=== PATIENT | female | born 1960 | race Caucasian/White ===

== ENCOUNTER 2016-11-21 18:49 | Emergency (ER) | payer OTHER ==
[~2016-11-21] VITALS: Ht 180.3 cm; Wt 109.1 kg
[2016-11-21 19:08] VITALS: BP 135/73; PULSE 68; RESP 16; O2SAT 96
--- NOTE | 2016-11-21 20:34 | ED.REPORT ---
HPI-Extremity Problem Lower Date of Service Nov 21, 2016 ED Provider: Noble Kohler PA-C Stephany is a 56-year-old female with a history of diabetes, hypertension and asthma presenting with a chief complaint of unilateral leg swelling. She reports increased ankle, knee and hip pain. She has a history one and a half years ago for fall which injured her left hip. Also complains of back pain with right leg radiculopathy which is at baseline. Denies use of blood thinners , estrogen, control, recent trauma, extended travel, history of DVT/PE. 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 Nursing Notes Stated Complaint: LEFT LEG AND ANKLE SWELLING Chief Complaint: General Complaint Nursing Notes Reviewed: Yes Allergies: Coded Allergies: codeine (Verified Allergy, Intermediate, HIVES, 11/21/16) iodine (Unverified Allergy, Mild, ITCHINESS, 08/08/12) PT BECAME ITCHY AFTER DRINKING ORAL CONTRAST. moxifloxacin (Verified Allergy, Mild, HIVES WHEEZY, 11/21/16) General Time Seen by MD: 20:11 Chief Complaint Leg injury left Risk-Extremity Prob Lower Well's Criteria for DVT Entire leg swollen (1), Calf swelling >3cm (1), Collat superfic veins (1) Well's DVT Score: >2 pts (high risk 85%) Past Medical History Past Medical History Reports: Asthma, Diabetes mellitus, Hypertension Review of Systems Review of Systems Note: Negative unless stated otherwise in history of present illness Physical Exam General: Well appearing, well developed, well nourished, no acute distress. Left hip: Good range of motion Left thigh: Varicose veins and superficial phlebitis on the medial aspect which patient states is at baseline. Left knee: Nontender, good range of motion, negative redness, heat. Left calf: Notably larger than the right calf, nontender. Negative redness, heat. Left foot/ankle: Ankle notably larger than the right. 1+ pitting edema. PT pulses 2+, sensation and motion and brisk capillary refill present distal phalanges. Negative redness, heat. Head: Atraumatic, normocephalic. Eyes: No scleral icterus or injection. No discharge. Vision grossly intact. ENT: Voice clear, hearing grossly intact. Respiratory: No respiratory distress, no increased work of breathing. Speaks in complete sentences. Skin: Warm and dry. Neurological: Grossly nonfocal. Psychological: alert and oriented. Speech appropriate, linear and logical. Behavior appropriate. Initial Vital Signs Vital Signs (First) Date Time Temp Pulse Resp B/P Pulse Ox O2 Delivery O2 Flow Rate FiO2 11/21/16 19:08 36.8 68 16 135/73 96 Room Air Mild hypertension noted, otherwise normal Interpretation & Diagnostics Lab Results Interpretation Result Diagram: 11/21/16204411/21/162044 Test 11/21/16 20:45 White Blood Count 9.0th/mm3 (3.8-10.1) Red Blood Count 5.03mil/mm3 (3.90-5.20) Hemoglobin 13.4g/dL (12.0-15.6) Hematocrit 42.0% (35.0-46.0) Mean Corpuscular Volume 83.5fL (81-100) Mean Corpuscular Hemoglobin 26.6pg (27.0-35.0) Mean Corpuscular Hemoglobin Concent 31.9% (32.0-37.0) Red Cell Distribution Width 14.5% (12.3-15.4) Platelet Count 296bil/L (150-400) Neutrophils (%) (Auto) 51.9% (40-74) Lymphocytes (%) (Auto) 34.0% (14-46) Monocytes (%) (Auto) 9.9% (4-12) Eosinophils (%) (Auto) 3.8% (0-5) Basophils (%) (Auto) 0.3% (0-3) Sodium Level 138mEq/L (134-144) Potassium Level 4.0mEq/L (3.5-5.2) Chloride Level 101mEq/L (97-108) Carbon Dioxide Level 24mmol/L (18-29) Blood Urea Nitrogen 13mg/dL (6-24) Creatinine 0.52mg/dL (0.57-1.00) Estimat Glomerular Filtration Rate 175mL/min (>59) Glucose Level 105mg/dL (60-99) Calcium Level 10.0mg/dL (8.5-10.1) Total Bilirubin 0.3mg/dL (0.0-1.2) Aspartate Amino Transf (AST/SGOT) 17U/L (0-50) Alanine Aminotransferase (ALT/SGPT) 15U/L (0-32) Alkaline Phosphatase 66U/L (25-150) Total Protein 7.2g/dL (6.4-8.4) Albumin 4.1g/dL (3.4-5.0) Hold [place] Top Tube Received (Received) Re-Eval/Medical Decision Med Decision/Clinical Course 56 year old female presenting with unilateral left leg swelling, increased left hip pain. Swelling easily noted on physical examination. Negative redness, heat. Distal pulses intact. I discussed case with Dr. Sow who met with and examined the patient. Ordered ultrasound to rule out DVT as well as CBC and CMP. Considering DVT, cellulitis, lymphedema. Care transferred to Dr. Sow at shift change. Discharge & Departure Impression: Primary Impression: Swelling of left lower extremity Disposition: Home Discharge Condition All VS Reviewed: Yes Condition: Stable Patient Instructions: Leg Edema (ED) Additional Instructions: Evaluation for left leg swelling in the emergency department includes history, physical examination, blood tests and ultrasound all of which are reassuring that this is not caused by an immediately dangerous conditions such as a blood clot. Elevate the leg as much as possible to reduce the swelling. I also recommend a mid-strength compression stocking to help reduce the swelling. These are available [id number]. Follow-up with your primary care provider to further investigate the cause of your leg swelling. Return to emergency department for new or worsening symptoms including increasing redness, swelling, pain, shortness of breath chest pain or cough Referrals: OTHER,PHYSICIAN (PCP) [facility] Provider for [facility]: Bj Sow DO Attending Statement Ultrasound was negative for DVT. Laboratory work was reassuring. No signs of renal insufficiency. She has bounding pedal pulses arterial insufficiency is highly unlikely. Because of her edema is uncertain. I will have her wear stockings and elevate her feet and follow-up with primary care. Noble Kohler PA-C Nov 21, 2016 20:34 Bj Sow DO Nov 21, 2016 22:05
[2016-11-21 20:50] LABS: BASOPHILS % (AUTO) 0.3 % (0-3); EOSINOPHILS % (AUTO) 3.8 % (0-5); MONOCYTES % (AUTO) 9.9 % (4-12); Mean Corpuscular Hemoglobin 26.6 pg (27.0-35.0); Mean Corpuscular Volume 83.5 fL (81-100); NEUTROPHILS % (AUTO) 51.9 % (40-74); Platelet Count 296 bil/L (150-400)
--- NOTE | 2016-11-21 21:53 | DRSVH ---
PROCEDURE: US VEINOUS LEG DUPLEX UNILATERAL, LEFT INDICATIONS: unilateral leg swelling TECHNIQUE: Real-time imaging, as well as color and pulse Doppler interrogation, were performed of the lower extr emity deep veins from the inguinal ligament to the popliteal fossa. COMPARISON: None. FINDINGS: The deep veins are normally compressible, and free of intraluminal thrombus. Color and pu lse Doppler demonstrate normal phasic intraluminal flow. There is normal augmentation response to di stal compression maneuver. IMPRESSION: No deep vein thrombosis of the left lower extremity. Dictated by: Karen Antonio M.D. on 11/21/2016 at 21:51 Approved by: Karen Antonio M.D. on 11/21/2016 at 21:51
[2016-11-21 22:21] VITALS: BP 124/72; PULSE 61; RESP 18; O2SAT 98
== END 2016-11-21 22:21 | disposition home or self-care (01) ==
LOC: SED 18:49
DX: R60.0 Localized edema (principal); M25.572 Pain in left ankle and joints of left foot; M25.562 Pain in left knee; M25.552 Pain in left hip; M54.9 Dorsalgia, unspecified; E11.9 Type 2 diabetes mellitus without complications; I10 Essential (primary) hypertension; J45.909 Unspecified asthma, uncomplicated; Z87.39 Personal history of other diseases of the musculoskeletal system and connective tissue; Z86.69 Personal history of other diseases of the nervous system and sense organs; Z86.718 Personal history of other venous thrombosis and embolism; Z88.1 Allergy status to other antibiotic agents; Z88.5 Allergy status to narcotic agent